=== PATIENT | female | born 2000 | race Two or more races ===

== ENCOUNTER 2020-07-12 10:24 | Inpatient (IN) | payer MEDICAID ==
[2020-07-12] MEDS ORDERED: Methylergonovine 0.2 MG/1 ML Amp IM PRN (11:43)
[2020-07-12] MEDS ORDERED: Ondansetron 4 MG/2 ML SDV IVPUSH PRN (11:43)
[2020-07-12] MEDS ORDERED: Butorphanol 1 MG/ML SDV IVPUSH PRN (11:43)
[2020-07-12] MEDS ORDERED: Nalbuphine 10 MG/1 ML Vial IVPUSH PRN (11:43)
[2020-07-12] MEDS ORDERED: Tranexamic Acid 1,000 MG in Sodium Chloride 0.9% 100 ML IV PRN (11:43)
[2020-07-12] MEDS ORDERED: Misoprostol 200 MCG Tab PO PRN (11:43)
[2020-07-12] MEDS ORDERED: Water For Irrigation,Sterile 1,000 ML Container IRR PRN (11:43)
[2020-07-12] MEDS ORDERED: Carboprost Tromethamine 250 MCG/1 ML Amp IM PRN (11:43)
[2020-07-12] MEDS ORDERED: Sodium Chloride 0.9% 2.5 ML Syringe FLUSH PRN (11:43)
[2020-07-12] MEDS ORDERED: Sodium Chloride 0.9% 10 ML Syringe FLUSH PRN (11:43)
[2020-07-12] MEDS ORDERED: Sodium Chloride 0.9% 10 ML SDV IV PRN (11:43)
[2020-07-12] MEDS ORDERED: Lidocaine 1% 50 ML MDV INJECT PRN (11:43)
[2020-07-12] MEDS ORDERED: Oxytocin/0.9 % Sodium Chloride 30 UNIT/500 ML BAG IV SCH (11:45)
[2020-07-12] MEDS ORDERED: Lactated Ringers 1,000 ML IV SCH (11:45)
[2020-07-13] MEDS ORDERED: Morphine 2 MG/ML SYRINGE IVPUSH ONE (01:12)
[2020-07-13] MEDS ORDERED: Lanolin 100% Cream 7 GM Tube TOP PRN (01:42)
[2020-07-13] MEDS ORDERED: Benzocaine/Menthol 20%-0.5% Spray 78 GM Cannister TOP PRN (01:42)
[2020-07-13] MEDS ORDERED: Ibuprofen 800 MG Tab PO PRN (01:42)
[2020-07-13] MEDS ORDERED: Docusate Sodium 100 MG Cap PO PRN (01:42)
[2020-07-13] MEDS ORDERED: Ibuprofen 400 MG Tab PO PRN (01:42)
[2020-07-13] MEDS ORDERED: Acetaminophen 500 MG Tab PO PRN ×2 (01:42)
[2020-07-13] MEDS ORDERED: Bisacodyl 10 MG Supp RECTAL PRN (01:42)
[2020-07-13] MEDS ORDERED: Witch Hazel Medicated Pads 40/Jar TOP PRN (01:42)
--- NOTE | 2020-07-13 01:48 | PCM.DEL ---
<Abrahan Hardwick - Last Filed: 07/13/20 01:36> L & D Note - General Info Date of Service: 07/13/20 Mother's Due Date: 07/18/20 - Delivery Note Labor: Spontaneous, Augmented by ARM Delivery Outcome: Livebirth Infant Delivery Method: Spontaneous Vaginal Delivery-Single Delivery Mode: Spontaneous Presentation: Right Occiput Anterior (DUSTIN) Nuchal Cord: Present Anesthesia Type: Pudendal Anesthetic: Lidocaine (Xylocaine) 1% Plain Local Anesthetic Volume: Other (20 mL during pudendal block, 10 mL for local anesthetic during labial laceration repair) Amniotic Fluid Description: Meconium Stained (Thin) Episiotomy Type: None Laceration: Labial (right and left) Suture type: Chromic Suture size: 3-0 Placenta: Intact, Spontaneous Cord: 3 Vessels Estimated Blood Loss: 200 Resuscitation Needed: No [place]: Bulb Syringe, Stimulated, Warmed Provider: Jenna Turcios Score 1 min: 8 Score 5 min: 9 Second Stage Interventions: Reports: Encouragement Given, Pushing, Feet in Foot Rests Delivery Comments (Free Text/Narrative):: Patient is a 19 year old with minimal care and a language barrier who presented to labor and delivery at 39w1d gestational age for contractions and spontaneous labor at 1015 on 07/12/20. The patient is A+ with a negative antibody screen. She is rubella immune, RPR negative, HIV and Hep B negative. Her GBS status is unknown. REUBEN is 07/18/20 based on US dating done at 34w5d. The patient continued to labor, and attempts to obtain a print color matcher for their primary language, pohnpeian, was unsuccessful. AROM occurred at 2035 with thin meconium stained fluid. Respiratory therapy was informed. The patient was found to be complete at 0007 on 07/13/20. The patient began pushing. A bilateral pudendal nerve block using 20 mL of 1% Lidocaine was performed for pain management at 0036. of a male infant occurred at 0101 in the DUSTIN position. A single nuchal cord was reduced following delivery. The was suctioned, cried spontaneously and the cord was clamped and cut. The infant was placed on the mother's abdomen, where it was stimulated and dried. The arterial and venous cord blood was then collected. The placenta was delivered spontaneously; the placenta was intact on inspection and a three vessel cord was observed. Inspection of the vaginal daniel was performed. A right labial tear was noted; this was repaired using 5 mL of 1% Lidocaine and 3-0 chromic. A second laceratio n on the left labia was noted and also repaired using 3-0 chromic and 5 mL of 1% Lidocaine. Further evaluation determined no other lacerations. Fundal massage was performed and the patient appeared to be hemodynamically stable. Cord blood was then obtained. - General Info Date of Service: 07/13/20 - Patient Data Weight - Most Recent: 175 lb Lab Results Last 24 Hours: Laboratory Results - last 24 hr 07/12/20 07/12/20 07/12/20 Range/Units 12:25 12:25 12:40 WBC 13.58 H (4.0-11.0) K/uL RBC 4.53 (4.30-5.90) M/uL Hgb 12.5 (12.0-16.0) g/dL Hct 38.0 (36.0-46.0) % MCV 83.9 (80.0-98.0) fL MCH 27.6 (27.0-32.0) pg MCHC 32.9 (31.0-37.0) g/dL RDW Std Deviation 40.6 (28.0-62.0) fl RDW Coeff of Elizabeth 14 (11.0-15.0) % Plt Count 237 (150-400) K/uL MPV 11.10 (7.40-12.00) fL Nucleated RBC % 0.0 /100WBC Nucleated RBCs # 0 K/uL COVID-19 (MEG) NEGATIVE (NEGATIVE) Blood Type A POSITIVE Antibody Screen NEGATIVE Med Orders - Current: Current Medications Butorphanol Tartrate (Stadol) 1 mg IVPUSH Q1H PRN PRN Reason: Pain Carboprost Tromethamine (Hemabate Ds) 250 mcg IM ASDIRECTED PRN PRN Reason: Post Hemorrhage Lactated Ringer's (Ringers, Lactated) 1,000 mls @ 150 mls/hr IV ASDIRECTED [facility] Last Infusion: 07/13/20 01:08 Dose: Infused Documented by: Oxytocin/Sodium Chloride (Oxytocin 30 Unit/500 Ml-Ns) 30 unit in 500 mls @ 500 mls/hr IV TITRATE [facility] Last Admin: 07/13/20 01:08 Dose: 500 mls/hr Documented by: Tranexamic Acid 1,000 mg/ (Sodium Chloride) 110 mls @ 660 mls/hr IV ONETIME PRN PRN Reason: Bleeding Lidocaine HCl (Xylocaine 1%) 50 ml INJECT ONETIME PRN PRN Reason: Laceration repair Methylergonovine Maleate (Methergine) 0.2 mg IM ASDIRECTED PRN PRN Reason: Post Hemorrhage Misoprostol (Cytotec) 200 mcg PO ONETIME PRN PRN Reason: Post Hemorrhage Nalbuphine HCl (Nubain) 10 mg IVPUSH Q1H PRN PRN Reason: Pain (severe 7-10) Ondansetron HCl (Zofran) 4 mg IVPUSH Q6H PRN PRN Reason: Nausea/Vomiting Sodium Chloride (Saline Flush) 10 ml FLUSH ASDIRECTED PRN PRN Reason: Keep Vein Open Sodium Chloride (Saline Flush) 2.5 ml FLUSH ASDIRECTED PRN PRN Reason: Keep Vein Open Sodium Chloride (Normal Saline) 10 ml IV ASDIRECTED PRN PRN Reason: IV Use Sterile Water (Sterile Water For Irrigation) 1,000 ml IRR ASDIRECTED PRN PRN Reason: delivery Last Admin: 07/13/20 01:22 Dose: 1,000 ml Documented by: Discontinued Medications Morphine Sulfate (Morphine) 2 mg IVPUSH ONETIME ONE Stop: 07/13/20 01:13 Last Admin: 07/13/20 01:17 Dose: 2 mg Documented by: - Problem List & Annotations (1) Vaginal delivery SNOMED Code(s): 650146146 Code(s): O80 - ENCOUNTER FOR FULL-TERM UNCOMPLICATED DELIVERY Status: Acute Current Visit: Yes (2) care insufficient SNOMED Code(s): 2561666640929 Code(s): O09.30 - SUPRVSN OF PREG W INSUFFICIENT ANTENAT CARE, UNSP TRIMESTER Status: Acute Current Visit: Yes (3) Language barrier SNOMED Code(s): 132328700, 251677146 Code(s): Z78.9 - OTHER SPECIFIED HEALTH STATUS Status: Acute Current Visit: Yes - Problem List Review Problem List Initiated/Reviewed/Updated: Yes - Assessment Assessment:: of a male infant at 39w2d gestational age to a 19 year old mother with limited care and a language barrier. Apgars 8/9 - Plan Plan:: 1. GBS unknown - per guidelines patient is term and does not require GBS prophylaxis 2. Rubella immune 3. A+ with negative antibody screen 4. Limited care 5. Language barrier - patient speaks Pohnpeian; all attempts were made to obtain an coal carrier and were unsuccessful, however patient was able to communicate sufficiently with nursing staff 6. as tolerated 7. Routine care per unit routine <Alba Mares - Last Filed: 07/13/20 02:46> - Patient Data Lab Results Last 24 Hours: Laboratory Results - last 24 hr 07/12/20 07/12/20 07/12/20 Range/Units 12:25 12:25 12:40 WBC 13.58 H (4.0-11.0) K/uL RBC 4.53 (4.30-5.90) M/uL Hgb 12.5 (12.0-16.0) g/dL Hct 38.0 (36.0-46.0) % MCV 83.9 (80.0-98.0) fL MCH 27.6 (27.0-32.0) pg MCHC 32.9 (31.0-37.0) g/dL RDW Std Deviation 40.6 (28.0-62.0) fl RDW Coeff of Elizabeth 14 (11.0-15.0) % Plt Count 237 (150-400) K/uL MPV 11.10 (7.40-12.00) fL Nucleated RBC % 0.0 /100WBC Nucleated RBCs # 0 K/uL COVID-19 (MEG) NEGATIVE (NEGATIVE) Blood Type A POSITIVE Antibody Screen NEGATIVE Med Orders - Current: Current Medications Acetaminophen (Tylenol Extra Strength) 500 mg PO Q4H PRN PRN Reason: Pain Acetaminophen (Tylenol Extra Strength) 1,000 mg PO Q4H PRN PRN Reason: Pain Benzocaine/Menthol (Dermoplast Pain Relief 20%-0.5% [place]) 78 gm TOP ASDIRECTED PRN PRN Reason: Perineal Comfort Measure Bisacodyl (Dulcolax) 10 mg RECTAL ONETIME PRN PRN Reason: Constipation Docusate Sodium (Colace) 100 mg PO BID PRN PRN Reason: Constipation Emollient Ointment (Lansinoh Hpa) 0 gm TOP ASDIRECTED PRN PRN Reason: Sore Nipples Ibuprofen (Motrin) 400 mg PO Q4H PRN PRN Reason: Pain Ibuprofen (Motrin) 800 mg PO Q6H PRN PRN Reason: Pain Oxycodone HCl (Oxycodone) 5 mg PO Q4H PRN PRN Reason: Pain (severe 7-10) Sodium Chloride (Saline Flush) 10 ml FLUSH ASDIRECTED PRN PRN Reason: Keep Vein Open Sodium Chloride (Saline Flush) 2.5 ml FLUSH ASDIRECTED PRN PRN Reason: Keep Vein Open Sodium Chloride (Normal Saline) 10 ml IV ASDIRECTED PRN PRN Reason: IV Use Witch Bindu (Tucks) 1 pad TOP ASDIRECTED PRN PRN Reason: comfort care Discontinued Medications Butorphanol Tartrate (Stadol) 1 mg IVPUSH Q1H PRN PRN Reason: Pain Carboprost Tromethamine (Hemabate Ds) 250 mcg IM ASDIRECTED PRN PRN Reason: Post Hemorrhage Lactated Ringer's (Ringers, Lactated) 1,000 mls @ 150 mls/hr IV ASDIRECTED [facility] Last Infusion: 07/13/20 01:08 Dose: Infused Documented by: Oxytocin/Sodium Chloride (Oxytocin 30 Unit/500 Ml-Ns) 30 unit in 500 mls @ 500 mls/hr IV TITRATE [facility] Last Admin: 07/13/20 01:08 Dose: 500 mls/hr Documented by: Tranexamic Acid 1,000 mg/ (Sodium Chloride) 110 mls @ 660 mls/hr IV ONETIME PRN PRN Reason: Bleeding Lidocaine HCl (Xylocaine 1%) 50 ml INJECT ONETIME PRN PRN Reason: Laceration repair Last Admin: 07/13/20 00:50 Dose: 50 ml Documented by: Measles/Mumps/Rubella Vaccine Live (M-M-R Ii Vaccine) 0.5 ml SUBCUT .ONCE ONE Stop: 07/13/20 02:39 Methylergonovine Maleate (Methergine) 0.2 mg IM ASDIRECTED PRN PRN Reason: Post Hemorrhage Misoprostol (Cytotec) 200 mcg PO ONETIME PRN PRN Reason: Post Hemorrhage Morphine Sulfate (Morphine) 2 mg IVPUSH ONETIME ONE Stop: 07/13/20 01:13 Last Admin: 07/13/20 01:17 Dose: 2 mg Documented by: Nalbuphine HCl (Nubain) 10 mg IVPUSH Q1H PRN PRN Reason: Pain (severe 7-10) Ondansetron HCl (Zofran) 4 mg IVPUSH Q6H PRN PRN Reason: Nausea/Vomiting Sterile Water (Sterile Water For Irrigation) 1,000 ml IRR ASDIRECTED PRN PRN Reason: delivery Last Admin: 07/13/20 01:22 Dose: 1,000 ml Documented by: - My Orders Last 24 Hours: My Active Orders 07/13/20 01:42 Patient Status [ADT] Routine May Shower [RC] ASDIRECTED Up ad Ellyn [RC] ASDIRECTED Vital Signs [RC] PER UNIT ROUTINE Acetaminophen [Tylenol Extra Strength] 1,000 mg PO Q4H PRN Acetaminophen [Tylenol Extra Strength] 500 mg PO Q4H PRN Benzocaine/Menthol [Dermoplast Pain Relief 20%-0.5% [place]] 78 gm TOP ASDIRECTED PRN Docusate Sodium [Colace] 100 mg PO BID PRN Ibuprofen [Motrin] 400 mg PO Q4H PRN Ibuprofen [Motrin] 800 mg PO Q6H PRN Lanolin [Lansinoh HPA] See Dose Instructions TOP ASDIRECTED PRN bisacodyL [Dulcolax] 10 mg RECTAL ONETIME PRN witch Bindu [Tucks] 1 pad TOP ASDIRECTED PRN Assess Lochia [WOMSER] Per Unit Routine Assess Uterine Involution [WOMSER] Per Unit Routine Peripheral IV Discontinue [OM.PC] Routine 07/13/20 02:38 Vaccines to be Administered [RC] PER UNIT ROUTINE 07/13/20 02:41 oxyCODONE 5 mg PO Q4H PRN 07/13/20 Breakfast Regular Diet [DIET] 07/14/20 05:11 HEMOGLOBIN/HEMATOCRIT,HH [HEME] Timed - Plan Plan:: Correction to above document: Patient is RUBELLA NON-IMMUNE. MMR vaccine ordered.
[2020-07-13] MEDS ORDERED: Measles, Mumps & Rubella Vaccine 0.5 ML SDV SUBCUT ONE (02:38)
[2020-07-13] MEDS ORDERED: oxyCODONE 5 MG Tab PO PRN (02:41)
--- NOTE | 2020-07-13 17:06 | OR ---
SURGEON: ALBA MARES MD DATE OF PROCEDURE: 07/13/2020 PREOPERATIVE DIAGNOSES: 1. A 39-2/7 weeks' intrauterine . 2. Labor. 3. Limited care. 4. Rubella nonimmune. POSTOPERATIVE DIAGNOSES: 1. A 39-2/7 weeks' intrauterine . 2. Labor. 3. Limited care. 4. Rubella nonimmune. 5. Bilateral labial lacerations, repaired PROCEDURE: Spontaneous vaginal delivery, pundendal block, bilateral labial lacerations. PRIMARY SURGEON: Alba Mares MD ASSISTANT CLINICAL DIRECTOR: LYUBOV Rodriguez ANESTHESIA: Local anesthetic and pudendal block. ESTIMATED BLOOD LOSS: 200 mL. COMPLICATIONS: None known. FINDINGS: Viable male . score of 8 at one minute and 9 at five minutes. Weight of 3030 g. Spontaneous delivery with intact placenta and 3-vessel cord. Right and left labial lacerations. DISPOSITION: to nursery, mom to LDRP. PROCEDURE DETAILS: Liliya is a 19-year-old, 1, at 39 weeks and 2 days' gestation, who presented to Labor and Delivery during the afternoon of 07/12/2020. Labor progressed spontaneously to 5 cm and artificial rupture of membranes was performed at 2035 with thin meconium-stained fluid noted. Respiratory Therapy was informed and requested to attend the delivery. Labor progressed without complications and without augmentation. The patient was found to be completely dilated at 0007 on 07/13/2020. Shortly thereafter, the patient began pushing efforts after my arrival to the room. As pushing continued, the patient requested medication for pain. Reviewed risks/benefits of pudendal block and patient desired. The right ischial spine was identified and a needle guide was used to place the needle immediately inferior to ischial spine. Upon negative aspiration, 10cc of 1% lidocaine was injected. The procedure was then performed on the contralateral side. Patient tolerated procedure well. The patient pushed adequately and was able to deliver the infant's head atraumatically. Loose nuchal cord x1 was reduced after delivery of the infant's head. The anterior shoulder and posterior shoulder and the remainder of the body delivered spontaneously without difficulty. 's oropharynx and nares were bulb suctioned. After a 30- second delay, the cord was clamped and cut. Infant was handed off to his mother while attending nursing staff at side. Cord arterial, cord venous, and cord blood sampling was obtained. Light pressure was then applied while the placenta was delivered spontaneously intact and 30 units of Pitocin was delivered in 500 mL of IV fluid. Upon inspection of the perineum, a small right labial laceration and a small left labial laceration were noted. The lacerations were injected with 1% lidocaine for local anesthetic. The lacerations were then repaired in a running fashion with 3-0 chromic. Further evaluations determined no additional lacerations. Uterus remained firm, hemostasis evident. Sponge, lap, and needle counts were correct. The patient remained in LDRP, and to nursery. CHELE / JYOTHI /[id number] ANNY
--- NOTE | 2020-07-14 08:34 | PCM.PNPP ---
<Abrahan Hardwick - Last Filed: 07/14/20 08:49> - General Info Date of Service: 07/14/20 Admission Dx/Problem (Free Text): of a male at 39w2d gestational age to a 19 year old mother with limited care and a language barrier who was admitted for spontaneous labor. Apgars 8/9 Subjective Update: Patient is doing well. She reports that breast feeding has gone well, her bleeding is improved and her pain is manageable. Functional Status: Reports: Pain Controlled, Tolerating Diet, Ambulating, Urinating - Review of Systems General: Reports: No Symptoms HEENT: Reports: No Symptoms Pulmonary: Reports: No Symptoms Cardiovascular: Reports: No Symptoms Gastrointestinal: Reports: No Symptoms Genitourinary: Reports: No Symptoms Musculoskeletal: Reports: No Symptoms Skin: Reports: No Symptoms Neurological: Reports: No Symptoms Psychiatric: Reports: No Symptoms - General Info Date of Service: 07/14/20 - Patient Data Vital Signs - Most Recent: Last Vital Signs Temp 96.4 F L 07/14/20 04:00 Pulse 92 07/14/20 04:00 Resp 14 07/14/20 04:00 BP 113/73 07/14/20 04:00 Pulse Ox 98 07/14/20 04:00 Weight - Most Recent: 79.379 kg Lab Results - Last 24 Hours: Laboratory Results - last 24 hr 07/14/20 Range/Units 05:40 Hgb 10.8 L (12.0-16.0) g/dL Hct 33.9 L (36.0-46.0) % Med Orders - Current: Current Medications Acetaminophen (Tylenol Extra Strength) 500 mg PO Q4H PRN PRN Reason: Pain Acetaminophen (Tylenol Extra Strength) 1,000 mg PO Q4H PRN PRN Reason: Pain Benzocaine/Menthol (Dermoplast Pain Relief 20%-0.5% [place]) 78 gm TOP ASDIRECTED PRN PRN Reason: Perineal Comfort Measure Bisacodyl (Dulcolax) 10 mg RECTAL ONETIME PRN PRN Reason: Constipation Docusate Sodium (Colace) 100 mg PO BID PRN PRN Reason: Constipation Emollient Ointment (Lansinoh Hpa) 0 gm TOP ASDIRECTED PRN PRN Reason: Sore Nipples Ibuprofen (Motrin) 400 mg PO Q4H PRN PRN Reason: Pain Ibuprofen (Motrin) 800 mg PO Q6H PRN PRN Reason: Pain Oxycodone HCl (Oxycodone) 5 mg PO Q4H PRN PRN Reason: Pain (severe 7-10) Sodium Chloride (Saline Flush) 10 ml FLUSH ASDIRECTED PRN PRN Reason: Keep Vein Open Sodium Chloride (Saline Flush) 2.5 ml FLUSH ASDIRECTED PRN PRN Reason: Keep Vein Open Sodium Chloride (Normal Saline) 10 ml IV ASDIRECTED PRN PRN Reason: IV Use Witch Bindu (Tucks) 1 pad TOP ASDIRECTED PRN PRN Reason: comfort care Discontinued Medications Butorphanol Tartrate (Stadol) 1 mg IVPUSH Q1H PRN PRN Reason: Pain Carboprost Tromethamine (Hemabate Ds) 250 mcg IM ASDIRECTED PRN PRN Reason: Post Hemorrhage Lactated Ringer's (Ringers, Lactated) 1,000 mls @ 150 mls/hr IV ASDIRECTED [facility] Last Infusion: 07/13/20 01:08 Dose: Infused Documented by: Oxytocin/Sodium Chloride (Oxytocin 30 Unit/500 Ml-Ns) 30 unit in 500 mls @ 500 mls/hr IV TITRATE [facility] Last Admin: 07/13/20 01:08 Dose: 500 mls/hr Documented by: Tranexamic Acid 1,000 mg/ (Sodium Chloride) 110 mls @ 660 mls/hr IV ONETIME PRN PRN Reason: Bleeding Lidocaine HCl (Xylocaine 1%) 50 ml INJECT ONETIME PRN PRN Reason: Laceration repair Last Admin: 07/13/20 00:50 Dose: 50 ml Documented by: Measles/Mumps/Rubella Vaccine Live (M-M-R Ii Vaccine) 0.5 ml SUBCUT .ONCE ONE Stop: 07/13/20 02:39 Methylergonovine Maleate (Methergine) 0.2 mg IM ASDIRECTED PRN PRN Reason: Post Hemorrhage Misoprostol (Cytotec) 200 mcg PO ONETIME PRN PRN Reason: Post Hemorrhage Morphine Sulfate (Morphine) 2 mg IVPUSH ONETIME ONE Stop: 07/13/20 01:13 Last Admin: 07/13/20 01:17 Dose: 2 mg Documented by: Nalbuphine HCl (Nubain) 10 mg IVPUSH Q1H PRN PRN Reason: Pain (severe 7-10) Ondansetron HCl (Zofran) 4 mg IVPUSH Q6H PRN PRN Reason: Nausea/Vomiting Sterile Water (Sterile Water For Irrigation) 1,000 ml IRR ASDIRECTED PRN PRN Reason: delivery Last Admin: 07/13/20 01:22 Dose: 1,000 ml Documented by: - Infant Interaction Infant Disposition, : [place] in Room with Family Interaction: Holding Infant Feeding: Attempted ; Nursed Fair/Poor Support Person: - Recovery Exam Fundal Tone: Firm Fundal Level: 1 Fingerbreadths Below Umbilicus Fundal Placement: Midline Lochia Amount: Scant Lochia Color: Rubra/Red Perineum Description: Edematous Episiotomy/Laceration: Approximated Bladder Status: Nonpalpable, Voiding Urinary Elimination: Voided - Exam General: Alert, Oriented HEENT: Pupils Equal, Pupils Reactive Lungs: Clear to Auscultation, Normal Respiratory Effort Cardiovascular: Regular Rate, Regular Rhythm Extremities: Normal Inspection, Non-Tender, No Pedal Edema, Normal Capillary Refill Skin: Warm, Dry, Intact Neurological: No New Focal Deficit Psy/Mental Status: Alert, Normal Affect, Normal Mood - Problem List & Annotations (1) Vaginal delivery SNOMED Code(s): 056238724 Code(s): O80 - ENCOUNTER FOR FULL-TERM UNCOMPLICATED DELIVERY Status: Acute Current Visit: Yes (2) care insufficient SNOMED Code(s): 5834348996581 Code(s): O09.30 - SUPRVSN OF PREG W INSUFFICIENT ANTENAT CARE, UNSP TRIMESTER Status: Acute Current Visit: Yes (3) Language barrier SNOMED Code(s): 080701617, 416136497 Code(s): Z78.9 - OTHER SPECIFIED HEALTH STATUS Status: Acute Current Visit: Yes (4) Rubella nonimmune status, delivered, current hospitalization SNOMED Code(s): 164469668 Code(s): O99.89 - OTH DISEASES AND CONDITIONS COMPL PREG/CHLDBRTH; Z28.3 - UNDERIMMUNIZATION STATUS Status: Acute Current Visit: Yes - Problem List Review Problem List Initiated/Reviewed/Updated: Yes - Assessment Assessment:: day 1 of a male infant at 39w2d gestational age to a 19 year old mother with limited care and a language barrier with GBS status unknown. Apgars 8/9 - Plan Plan:: 1. GBS unknown - per guidelines patient is term and does not require GBS prophylaxis 2. Rubella non-immune - needs MMR prior to discharge 3. A+ with negative antibody screen 4. Limited care 5. Language barrier - patient speaks Pohnpeian; all attempts were made to obtain an product tester fiberglass and were unsuccessful, however patient was able to communicate sufficiently with nursing staff 6. as tolerated 7. Routine care per unit routine 8. Discharge home at 48 hours per furnace utility operator recommendation due to GBS status <Melia Villafuerte - Last Filed: 07/14/20 12:06> - Patient Data Vital Signs - Most Recent: Last Vital Signs Temp 36.3 C 07/14/20 08:30 Pulse 92 07/14/20 04:00 Resp 18 07/14/20 08:30 BP 118/60 07/14/20 08:30 Pulse Ox 97 07/14/20 08:30 Lab Results - Last 24 Hours: Laboratory Results - last 24 hr 07/14/20 Range/Units 05:40 Hgb 10.8 L (12.0-16.0) g/dL Hct 33.9 L (36.0-46.0) % Med Orders - Current: Current Medications Acetaminophen (Tylenol Extra Strength) 500 mg PO Q4H PRN PRN Reason: Pain Acetaminophen (Tylenol Extra Strength) 1,000 mg PO Q4H PRN PRN Reason: Pain Benzocaine/Menthol (Dermoplast Pain Relief 20%-0.5% [place]) 78 gm TOP ASDIRECTED PRN PRN Reason: Perineal Comfort Measure Bisacodyl (Dulcolax) 10 mg RECTAL ONETIME PRN PRN Reason: Constipation Docusate Sodium (Colace) 100 mg PO BID PRN PRN Reason: Constipation Emollient Ointment (Lansinoh Hpa) 0 gm TOP ASDIRECTED PRN PRN Reason: Sore Nipples Ibuprofen (Motrin) 400 mg PO Q4H PRN PRN Reason: Pain Ibuprofen (Motrin) 800 mg PO Q6H PRN PRN Reason: Pain Oxycodone HCl (Oxycodone) 5 mg PO Q4H PRN PRN Reason: Pain (severe 7-10) Sodium Chloride (Saline Flush) 10 ml FLUSH ASDIRECTED PRN PRN Reason: Keep Vein Open Sodium Chloride (Saline Flush) 2.5 ml FLUSH ASDIRECTED PRN PRN Reason: Keep Vein Open Sodium Chloride (Normal Saline) 10 ml IV ASDIRECTED PRN PRN Reason: IV Use Witch Bindu (Tucks) 1 pad TOP ASDIRECTED PRN PRN Reason: comfort care Discontinued Medications Butorphanol Tartrate (Stadol) 1 mg IVPUSH Q1H PRN PRN Reason: Pain Carboprost Tromethamine (Hemabate Ds) 250 mcg IM ASDIRECTED PRN PRN Reason: Post Hemorrhage Lactated Ringer's (Ringers, Lactated) 1,000 mls @ 150 mls/hr IV ASDIRECTED [facility] Last Infusion: 07/13/20 01:08 Dose: Infused Documented by: Oxytocin/Sodium Chloride (Oxytocin 30 Unit/500 Ml-Ns) 30 unit in 500 mls @ 500 mls/hr IV TITRATE [facility] Last Admin: 07/13/20 01:08 Dose: 500 mls/hr Documented by: Tranexamic Acid 1,000 mg/ (Sodium Chloride) 110 mls @ 660 mls/hr IV ONETIME PRN PRN Reason: Bleeding Lidocaine HCl (Xylocaine 1%) 50 ml INJECT ONETIME PRN PRN Reason: Laceration repair Last Admin: 07/13/20 00:50 Dose: 50 ml Documented by: Measles/Mumps/Rubella Vaccine Live (M-M-R Ii Vaccine) 0.5 ml SUBCUT .ONCE ONE Stop: 07/13/20 02:39 Methylergonovine Maleate (Methergine) 0.2 mg IM ASDIRECTED PRN PRN Reason: Post Hemorrhage Misoprostol (Cytotec) 200 mcg PO ONETIME PRN PRN Reason: Post Hemorrhage Morphine Sulfate (Morphine) 2 mg IVPUSH ONETIME ONE Stop: 07/13/20 01:13 Last Admin: 07/13/20 01:17 Dose: 2 mg Documented by: Nalbuphine HCl (Nubain) 10 mg IVPUSH Q1H PRN PRN Reason: Pain (severe 7-10) Ondansetron HCl (Zofran) 4 mg IVPUSH Q6H PRN PRN Reason: Nausea/Vomiting Sterile Water (Sterile Water For Irrigation) 1,000 ml IRR ASDIRECTED PRN PRN Reason: delivery Last Admin: 07/13/20 01:22 Dose: 1,000 ml Documented by: - Problem List & Annotations (1) Vaginal delivery SNOMED Code(s): 512064687 Code(s): O80 - ENCOUNTER FOR FULL-TERM UNCOMPLICATED DELIVERY Status: Acute Current Visit: Yes - Plan Plan:: I have reviewed and agree with the above. Baby will stay for 48 hours due to unknown GBS status. Will order MMR vaccination. Continue routine PP care.
--- NOTE | 2020-07-15 09:20 | PCM.PNPP ---
<Abrahan Hardwick - Last Filed: 07/15/20 09:20> - General Info Date of Service: 07/15/20 Admission Dx/Problem (Free Text): of a male at 39w2d gestational age to a 19 year old mother with limited care and a language barrier who was admitted for spontaneous labor. Apgars 8/9 Subjective Update: Patient is doing well today. She reports that she has been up to use the bathroom and has not had any pain. She has not yet had a bowel movement but has been passing gas. She has been able to breastfeed without issue. Functional Status: Reports: Pain Controlled, Tolerating Diet, Ambulating, Urinating - Review of Systems General: Reports: No Symptoms HEENT: Reports: No Symptoms Pulmonary: Reports: No Symptoms Cardiovascular: Reports: No Symptoms Gastrointestinal: Reports: No Symptoms Genitourinary: Reports: No Symptoms Musculoskeletal: Reports: No Symptoms Skin: Reports: No Symptoms Neurological: Reports: No Symptoms Psychiatric: Reports: No Symptoms - General Info Date of Service: 07/15/20 - Patient Data Vital Signs - Most Recent: Last Vital Signs Temp 97.3 F 07/15/20 08:00 Pulse 85 07/15/20 08:00 Resp 16 07/15/20 08:00 BP 109/59 L 07/15/20 04:43 Pulse Ox 99 07/15/20 08:00 Weight - Most Recent: 79.379 kg Lab Results - Last 24 Hours: Laboratory Results - last 24 hr 07/13/20 Range/Units 10:24 RPR Non-Reac (Non-Reac) Med Orders - Current: Current Medications Acetaminophen (Tylenol Extra Strength) 500 mg PO Q4H PRN PRN Reason: Pain Acetaminophen (Tylenol Extra Strength) 1,000 mg PO Q4H PRN PRN Reason: Pain Benzocaine/Menthol (Dermoplast Pain Relief 20%-0.5% Dennis) 78 gm TOP ASDIRECTED PRN PRN Reason: Perineal Comfort Measure Bisacodyl (Dulcolax) 10 mg RECTAL ONETIME PRN PRN Reason: Constipation Docusate Sodium (Colace) 100 mg PO BID PRN PRN Reason: Constipation Emollient Ointment (Lansinoh Hpa) 0 gm TOP ASDIRECTED PRN PRN Reason: Sore Nipples Ibuprofen (Motrin) 400 mg PO Q4H PRN PRN Reason: Pain Ibuprofen (Motrin) 800 mg PO Q6H PRN PRN Reason: Pain Oxycodone HCl (Oxycodone) 5 mg PO Q4H PRN PRN Reason: Pain (severe 7-10) Sodium Chloride (Saline Flush) 10 ml FLUSH ASDIRECTED PRN PRN Reason: Keep Vein Open Sodium Chloride (Saline Flush) 2.5 ml FLUSH ASDIRECTED PRN PRN Reason: Keep Vein Open Sodium Chloride (Normal Saline) 10 ml IV ASDIRECTED PRN PRN Reason: IV Use Witch Bindu (Tucks) 1 pad TOP ASDIRECTED PRN PRN Reason: comfort care Discontinued Medications Butorphanol Tartrate (Stadol) 1 mg IVPUSH Q1H PRN PRN Reason: Pain Carboprost Tromethamine (Hemabate Ds) 250 mcg IM ASDIRECTED PRN PRN Reason: Post Hemorrhage Lactated Ringer's (Ringers, Lactated) 1,000 mls @ 150 mls/hr IV ASDIRECTED [facility] Last Infusion: 07/13/20 01:08 Dose: Infused Documented by: Oxytocin/Sodium Chloride (Oxytocin 30 Unit/500 Ml-Ns) 30 unit in 500 mls @ 500 mls/hr IV TITRATE [facility] Last Admin: 07/13/20 01:08 Dose: 500 mls/hr Documented by: Tranexamic Acid 1,000 mg/ (Sodium Chloride) 110 mls @ 660 mls/hr IV ONETIME PRN PRN Reason: Bleeding Lidocaine HCl (Xylocaine 1%) 50 ml INJECT ONETIME PRN PRN Reason: Laceration repair Last Admin: 07/13/20 00:50 Dose: 50 ml Documented by: Measles/Mumps/Rubella Vaccine Live (M-M-R Ii Vaccine) 0.5 ml SUBCUT .ONCE ONE Stop: 07/13/20 02:39 Methylergonovine Maleate (Methergine) 0.2 mg IM ASDIRECTED PRN PRN Reason: Post Hemorrhage Misoprostol (Cytotec) 200 mcg PO ONETIME PRN PRN Reason: Post Hemorrhage Morphine Sulfate (Morphine) 2 mg IVPUSH ONETIME ONE Stop: 07/13/20 01:13 Last Admin: 07/13/20 01:17 Dose: 2 mg Documented by: Nalbuphine HCl (Nubain) 10 mg IVPUSH Q1H PRN PRN Reason: Pain (severe 7-10) Ondansetron HCl (Zofran) 4 mg IVPUSH Q6H PRN PRN Reason: Nausea/Vomiting Sterile Water (Sterile Water For Irrigation) 1,000 ml IRR ASDIRECTED PRN PRN Reason: delivery Last Admin: 07/13/20 01:22 Dose: 1,000 ml Documented by: - Infant Interaction Infant Disposition, : Berger in Room with Family Infant Interaction: Holding Feeding: Attempted ; Nursed Fair/Poor Support Person: - Recovery Exam Fundal Tone: Firm Fundal Level: 1 Fingerbreadths Below Umbilicus Fundal Placement: Midline Lochia Amount: Small Lochia Color: Rubra/Red Perineum Description: Edematous Episiotomy/Laceration: Approximated Bladder Status: Nonpalpable, Voiding Urinary Elimination: Voided - Exam General: Alert, Oriented HEENT: Pupils Equal, Pupils Reactive Lungs: Clear to Auscultation, Normal Respiratory Effort Cardiovascular: Regular Rate, Regular Rhythm GI/Abdominal Exam: Normal Bowel Sounds, Non-Tender, No Organomegaly, No Distention, No Mass Extremities: Normal Inspection, Non-Tender, No Pedal Edema, Normal Capillary Refill Skin: Warm, Dry, Intact Neurological: No New Focal Deficit Psy/Mental Status: Alert, Normal Affect, Normal Mood - Problem List & Annotations (1) Vaginal delivery SNOMED Code(s): 275763374 Code(s): O80 - ENCOUNTER FOR FULL-TERM UNCOMPLICATED DELIVERY Status: Acute Current Visit: Yes (2) care insufficient SNOMED Code(s): 5656511927991 Code(s): O09.30 - SUPRVSN OF PREG W INSUFFICIENT ANTENAT CARE, UNSP TRIMESTER Status: Acute Current Visit: Yes (3) Language barrier SNOMED Code(s): 885497949, 669334542 Code(s): Z78.9 - OTHER SPECIFIED HEALTH STATUS Status: Acute Current Visit: Yes (4) Rubella nonimmune status, delivered, current hospitalization SNOMED Code(s): 818496817 Code(s): O99.89 - OTH DISEASES AND CONDITIONS COMPL PREG/CHLDBRTH; Z28.3 - UNDERIMMUNIZATION STATUS Status: Acute Current Visit: Yes - Problem List Review Problem List Initiated/Reviewed/Updated: Yes - Assessment Assessment:: day 2 of a male infant at 39w2d gestational age to a 19 year old mother with limited care and a language barrier with GBS status unknown. Apgars 8/9 - Plan Plan:: 1. GBS unknown - per guidelines patient is term and does not require GBS prophylaxis 2. Rubella non-immune - MMR ordered, to be given prior to discharge 3. A+ with negative antibody screen 4. Limited care 5. Language barrier - patient speaks Pohnpe[place]; all attempts were made to obtain an recoverer and were unsuccessful, however patient was able to communicate sufficiently with nursing staff 6. as tolerated 7. Routine care per unit routine 8. Discharge home at 48 hours per information management specialist recommendation due to GBS status <Melia Villafuerte - Last Filed: 07/15/20 09:32> - Patient Data Vital Signs - Most Recent: Last Vital Signs Temp 36.3 C 07/15/20 08:00 Pulse 85 07/15/20 08:00 Resp 16 07/15/20 08:00 BP 109/59 L 07/15/20 04:43 Pulse Ox 99 07/15/20 08:00 Lab Results - Last 24 Hours: Laboratory Results - last 24 hr 07/13/20 Range/Units 10:24 RPR Non-Reac (Non-Reac) Med Orders - Current: Current Medications Acetaminophen (Tylenol Extra Strength) 500 mg PO Q4H PRN PRN Reason: Pain Acetaminophen (Tylenol Extra Strength) 1,000 mg PO Q4H PRN PRN Reason: Pain Benzocaine/Menthol (Dermoplast Pain Relief 20%-0.5% Dennis) 78 gm TOP ASDIRECTED PRN PRN Reason: Perineal Comfort Measure Bisacodyl (Dulcolax) 10 mg RECTAL ONETIME PRN PRN Reason: Constipation Docusate Sodium (Colace) 100 mg PO BID PRN PRN Reason: Constipation Emollient Ointment (Lansinoh Hpa) 0 gm TOP ASDIRECTED PRN PRN Reason: Sore Nipples Ibuprofen (Motrin) 400 mg PO Q4H PRN PRN Reason: Pain Ibuprofen (Motrin) 800 mg PO Q6H PRN PRN Reason: Pain Oxycodone HCl (Oxycodone) 5 mg PO Q4H PRN PRN Reason: Pain (severe 7-10) Sodium Chloride (Saline Flush) 10 ml FLUSH ASDIRECTED PRN PRN Reason: Keep Vein Open Sodium Chloride (Saline Flush) 2.5 ml FLUSH ASDIRECTED PRN PRN Reason: Keep Vein Open Sodium Chloride (Normal Saline) 10 ml IV ASDIRECTED PRN PRN Reason: IV Use Witch Bindu (Tucks) 1 pad TOP ASDIRECTED PRN PRN Reason: comfort care Discontinued Medications Butorphanol Tartrate (Stadol) 1 mg IVPUSH Q1H PRN PRN Reason: Pain Carboprost Tromethamine (Hemabate Ds) 250 mcg IM ASDIRECTED PRN PRN Reason: Post Hemorrhage Lactated Ringer's (Ringers, Lactated) 1,000 mls @ 150 mls/hr IV ASDIRECTED [facility] Last Infusion: 07/13/20 01:08 Dose: Infused Documented by: Oxytocin/Sodium Chloride (Oxytocin 30 Unit/500 Ml-Ns) 30 unit in 500 mls @ 500 mls/hr IV TITRATE [facility] Last Admin: 07/13/20 01:08 Dose: 500 mls/hr Documented by: Tranexamic Acid 1,000 mg/ (Sodium Chloride) 110 mls @ 660 mls/hr IV ONETIME PRN PRN Reason: Bleeding Lidocaine HCl (Xylocaine 1%) 50 ml INJECT ONETIME PRN PRN Reason: Laceration repair Last Admin: 07/13/20 00:50 Dose: 50 ml Documented by: Measles/Mumps/Rubella Vaccine Live (M-M-R Ii Vaccine) 0.5 ml SUBCUT .ONCE ONE Stop: 07/13/20 02:39 Methylergonovine Maleate (Methergine) 0.2 mg IM ASDIRECTED PRN PRN Reason: Post Hemorrhage Misoprostol (Cytotec) 200 mcg PO ONETIME PRN PRN Reason: Post Hemorrhage Morphine Sulfate (Morphine) 2 mg IVPUSH ONETIME ONE Stop: 07/13/20 01:13 Last Admin: 07/13/20 01:17 Dose: 2 mg Documented by: Nalbuphine HCl (Nubain) 10 mg IVPUSH Q1H PRN PRN Reason: Pain (severe 7-10) Ondansetron HCl (Zofran) 4 mg IVPUSH Q6H PRN PRN Reason: Nausea/Vomiting Sterile Water (Sterile Water For Irrigation) 1,000 ml IRR ASDIRECTED PRN PRN Reason: delivery Last Admin: 07/13/20 01:22 Dose: 1,000 ml Documented by: - Problem List & Annotations (1) Vaginal delivery SNOMED Code(s): 671665275 Code(s): O80 - ENCOUNTER FOR FULL-TERM UNCOMPLICATED DELIVERY Status: Acute Current Visit: Yes - Plan Plan:: I reviewed and agree with the above. going well. Reviewed discharge instructions.
[2020-07-15] MEDS ORDERED: Measles, Mumps & Rubella Vaccine 0.5 ML SDV SUBCUT ONE (10:19)
== END 2020-07-15 10:55 | disposition home or self-care (01) | DRG 807 ==
LOC: MW.OBCHECK 10:24 → MW.OB 10:33 → MW.OBCHECK 11:43 → MW.OB 11:44 → OBSVTOIN 07-13 01:01 → MW.OB 07-13 03:30
PROVIDERS: ADMIT Obstetrics & Gynecology; ATTEND Obstetrics & Gynecology
PROC: 10E0XZZ Delivery of Products of Conception, External Approach (ICD-10-PCS; principal; 2020-07-13)
PROC: 10907ZC Drainage of Amniotic Fluid, Therapeutic from Products of Conception, Via Natural or Artificial Opening (ICD-10-PCS; 2020-07-13)
PROC: 0UQMXZZ Repair Vulva, External Approach (ICD-10-PCS; 2020-07-13)
PROC: 3E0R3BZ Introduction of Anesthetic Agent into Spinal Canal, Percutaneous Approach (ICD-10-PCS; 2020-07-13)
DX: O69.81X0 Labor and delivery complicated by cord around neck, without compression, not applicable or unspecified (principal); Z37.0 Single live birth; Z3A.39 39 weeks gestation of pregnancy; O70.0 First degree perineal laceration during delivery; O77.0 Labor and delivery complicated by meconium in amniotic fluid; O76 Abnormality in fetal heart rate and rhythm complicating labor and delivery; Z11.59 Encounter for screening for other viral diseases
CPT/HCPCS: 36415; 59025; 59409; 82803; 85014; 85018; 85027; 86592; 86850; 86900; 86901; J2001; J2270; J2590; J7120; U0002

== ENCOUNTER 2021-09-15 15:33 | Inpatient (IN) | payer MEDICAID, OTHER ==
[2021-09-15] MEDS ORDERED: Sodium Chloride 0.9% 2.5 ML Syringe FLUSH PRN (15:59)
[2021-09-15] MEDS ORDERED: Ampicillin 2 GM in Sodium Chloride 0.9% 100 ML IV ONE (15:59)
[2021-09-15] MEDS ORDERED: Carboprost Tromethamine 250 MCG/1 ML Amp IM PRN (15:59)
[2021-09-15] MEDS ORDERED: Butorphanol 1 MG/ML SDV IVPUSH PRN (15:59)
[2021-09-15] MEDS ORDERED: Tranexamic Acid 1,000 MG in Sodium Chloride 0.9% 100 ML IV PRN (15:59)
[2021-09-15] MEDS ORDERED: Water For Irrigation,Sterile 1,000 ML Container IRR PRN (15:59)
[2021-09-15] MEDS ORDERED: Methylergonovine 0.2 MG/1 ML Amp IM PRN (15:59)
[2021-09-15] MEDS ORDERED: Misoprostol 200 MCG Tab PO PRN (15:59)
[2021-09-15] MEDS ORDERED: Sodium Chloride 0.9% 10 ML SDV IV PRN (15:59)
[2021-09-15] MEDS ORDERED: Nalbuphine 10 MG/1 ML Vial IVPUSH PRN (15:59)
[2021-09-15] MEDS ORDERED: Lidocaine 1% 50 ML MDV INJECT PRN (15:59)
[2021-09-15] MEDS ORDERED: Sodium Chloride 0.9% 10 ML Syringe FLUSH PRN (15:59)
[2021-09-15] MEDS ORDERED: Lactated Ringers 1,000 ML IV SCH (16:00)
[2021-09-15] MEDS ORDERED: Oxytocin/0.9 % Sodium Chloride 30 UNIT/500 ML BAG IV SCH (16:00)
--- NOTE | 2021-09-15 17:05 | PCM.LDHP ---
L&D History of Present Illness - General Date of Service: 09/15/21 Admit Problem/Dx: Patient Status Order with Admit Dx/Problem 09/15/21 15:59 Patient Status [ADT] Routine Admission Diagnosis/Problem Admission Diagnosis/Problem Source of Information: Patient History Limitations: Reports: No Limitations - History of Present Illness Introduction:: 20yo at 39w6d presenting with contractions for the past few hours. care is complicated by late entry to care: patient reports she had no insurance. She was also found to be GBS positive. A+, abs screen neg, RI, RPR NR, HBsAg neg, HIV neg. - Related Data Allergies/Adverse Reactions: Allergies Allergy/AdvReac Type Severity Reaction Status Date / Time No Known Allergies Allergy Verified 09/15/21 16:03 Home Medications: Home Meds Pnv No.95/Ferrous Fum/Folic AC [ Vitamins Tablet] 1 tab PO DAILY 09/15/21 [History] Past Medical History - Past Health History Medical/Surgical History: Denies Medical/Surgical History [employer] History: Reports: Social & Family History - Family History Family Medical History: No Pertinent Family History - Tobacco Use Tobacco Use Status *Q: Never Tobacco User Second Hand Smoke Exposure: No H&P Review of Systems - Review of Systems: Review Of Systems: See Below General: Reports: No Symptoms HEENT: Reports: No Symptoms Pulmonary: Reports: No Symptoms Cardiovascular: Reports: No Symptoms Gastrointestinal: Reports: No Symptoms Genitourinary: Reports: No Symptoms Musculoskeletal: Reports: No Symptoms Skin: Reports: No Symptoms Psychiatric: Reports: No Symptoms Neurological: Reports: No Symptoms Hematologic/Lymphatic: Reports: No Symptoms Immunologic: Reports: No Symptoms L&D Exam - Exam Exam: See Below - Vital Signs Weight: 81.647 kg - OB Specific Contraction Intensity: Moderate to Strong Movement: Active Heart Rate (FHR) Variability: Moderate (6-25 bpm) Estimated Weight: 7.5lbs - Boyce Score Boyce Score Cervix Position: Midposition Boyce Score Consistency: Medium Boyce Score Effacement: 51-70% Boyce Score Dilation: > 5 cm Boyce Score 's Station: -2 Boyce Score Total: 8 - Exam General: Alert, Oriented Cardiovascular: Regular Rate GI/Abdominal Exam: Soft, Non-Tender Extremities: Normal Inspection Psychiatric: Alert, Normal Affect, Normal Mood - Patient Data Lab Results Last 24 hrs: Laboratory Results - last 24 hr 09/15/21 Range/Units 16:22 WBC 10.53 (4.0-11.0) K/uL RBC 4.38 (4.30-5.90) M/uL Hgb 11.5 L (12.0-16.0) g/dL Hct 34.8 L (36.0-46.0) % MCV 79.5 L (80.0-98.0) fL MCH 26.3 L (27.0-32.0) pg MCHC 33.0 (31.0-37.0) g/dL RDW Std Deviation 39.4 (28.0-62.0) fl RDW Coeff of Elizabeth 14 (11.0-15.0) % Plt Count 255 (150-400) K/uL MPV 10.70 (7.40-12.00) fL Nucleated RBC % 0.0 /100WBC Nucleated RBCs # 0 K/uL Result Diagrams: 09/15/21 16:22 - Problem List (1) Active labor at term SNOMED Code(s): 51467045 ICD Code: OQB2799 - Status: Acute Priority: High Current Visit: Yes (2) GBS carrier SNOMED Code(s): 9009592877356 ICD Code: Z22.330 - CARRIER OF GROUP B STREPTOCOCCUS Status: Acute Priority: High Current Visit: Yes Problem List Initiated/Reviewed/Updated: Yes Orders Last 24hrs: Active Orders 24 hr Category Date Time Status Patient Status [ADT] Routine ADT 09/15/21 15:59 Active Heart Tones [RC] CONTINUOUS Care 09/15/21 15:59 Active May Shower [RC] ASDIRECTED Care 09/15/21 15:59 Active Notify Provider [RC] PRN Care 09/15/21 15:59 Active Up ad Ellyn [RC] ASDIRECTED Care 09/15/21 15:59 Active Vital Signs [RC] PER UNIT ROUTINE Care 09/15/21 15:59 Active Regular Diet [DIET] Diet 09/15/21 Dinner Active CORONAVIRUS COVID-19 MEG [MOLEC] Urgent Lab 09/15/21 15:59 Ordered RPR (SYPHILIS SERO) W/ RFLX [REF] Routine Lab 09/15/21 16:22 Received TYPE AND SCREEN [BBK] Routine Lab 09/15/21 16:14 Received Ampicillin 1 gm Med 09/15/21 20:00 Active Sodium Chloride 0.9% [Normal Saline] 50 ml IV Q4H Butorphanol [Stadol] Med 09/15/21 15:59 Active 1 mg IVPUSH Q1H PRN Carboprost Tromethamine [Hemabate DS] Med 09/15/21 15:59 Active 250 mcg IM ASDIRECTED PRN Lactated Ringers [Ringers, Lactated] 1,000 ml Med 09/15/21 16:00 Active IV ASDIRECTED Lidocaine 1% [Xylocaine 1%] Med 09/15/21 15:59 Active 50 ml INJECT ONETIME PRN Methylergonovine [Methergine] Med 09/15/21 15:59 Active 0.2 mg IM ASDIRECTED PRN Nalbuphine [Nubain] Med 09/15/21 15:59 Active 10 mg IVPUSH Q1H PRN Oxytocin/0.9 % Sodium Chloride [Oxytocin 30 Unit in NS Med 09/15/21 16:00 Active 0.9% 500 ML Premix] 30 unit in 500 ml IV TITRATE Sodium Chloride 0.9% [Normal Saline] Med 09/15/21 15:59 Active 10 ml IV ASDIRECTED PRN Sodium Chloride 0.9% [Saline Flush] Med 09/15/21 15:59 Active 10 ml FLUSH ASDIRECTED PRN Sodium Chloride 0.9% [Saline Flush] Med 09/15/21 15:59 Active 2.5 ml FLUSH ASDIRECTED PRN Tranexamic Acid [Cyklokapron] 1,000 mg Med 09/15/21 15:59 Active Sodium Chloride 0.9% [Normal Saline] 100 ml IV ONETIME Water For Irrigation,Sterile [Sterile Water for Med 09/15/21 15:59 Active Irrigation] 1,000 ml IRR ASDIRECTED PRN miSOPROStoL [Cytotec] Med 09/15/21 15:59 Active 200 mcg PO ONETIME PRN Scalp Electrode [WOMSER] Per Unit Routine Oth 09/15/21 15:59 Ordered Peripheral IV Insertion Adult [OM.PC] Routine Oth 09/15/21 15:59 Ordered Resuscitation Status Routine Resus Stat 09/15/21 15:59 Ordered Medication Orders Butorphanol Tartrate (Butorphanol 1 Mg/Ml Sdv) 1 mg IVPUSH Q1H PRN PRN Reason: Pain (severe 7-10) Carboprost Tromethamine (Carboprost Tromethamine 250 Mcg/1 Ml Amp) 250 mcg IM ASDIRECTED PRN PRN Reason: Post Hemorrhage Oxytocin/Sodium Chloride (Oxytocin 30 Unit In Ns 0.9% 500 Ml Premix) 30 unit in 500 mls @ 999 mls/hr IV TITRATE [facility] Tranexamic Acid 1,000 mg/ (Sodium Chloride) 110 mls @ 660 mls/hr IV ONETIME PRN PRN Reason: Bleeding Ampicillin Sodium 1 gm/ Sodium (Chloride) 50 mls @ 100 mls/hr IV Q4H [facility] Lactated Ringer's (Ringers, Lactated) 1,000 mls @ 150 mls/hr IV ASDIRECTED [facility] Last Admin: 09/15/21 16:24 Dose: 500 mls/hr Documented by: MINO Lidocaine HCl (Lidocaine 1% 50 Ml Mdv) 50 ml INJECT ONETIME PRN PRN Reason: Laceration repair Methylergonovine Maleate (Methylergonovine 0.2 Mg/1 Ml Amp) 0.2 mg IM ASDIR ECTED PRN PRN Reason: Post Hemorrhage Misoprostol (Misoprostol 200 Mcg Tab) 200 mcg PO ONETIME PRN PRN Reason: Post Hemorrhage Nalbuphine HCl (Nalbuphine 10 Mg/1 Ml Vial) 10 mg IVPUSH Q1H PRN PRN Reason: Pain (severe 7-10) Sodium Chloride (Sodium Chloride 0.9% 10 Ml Syringe) 10 ml FLUSH ASDIRECTED PRN PRN Reason: Keep Vein Open Sodium Chloride (Sodium Chloride 0.9% 2.5 Ml Syringe) 2.5 ml FLUSH ASDIRECTED PRN PRN Reason: Keep Vein Open Sodium Chloride (Sodium Chloride 0.9% 10 Ml Sdv) 10 ml IV ASDIRECTED PRN PRN Reason: IV Use Sterile Water (Water For Irrigation,Sterile 1,000 Ml Container) 1,000 ml IRR ASDIRECTED PRN PRN Reason: delivery Assessment/Plan Comment:: 20yo at 39w6d admitted in active labor. GBS positive and late entry to care, otherwise unremarkable. Boyce score of 8 (per the nurse exam) Cat 1 tracing. P: Expectant management GBS prophilaxis. Epidural PRN
[2021-09-15] MEDS ORDERED: Ampicillin 1 GM in Sodium Chloride 0.9% 50 ML IV SCH (20:00)
[2021-09-15] MEDS ORDERED: Ibuprofen 800 MG Tab PO PRN (21:02)
[2021-09-15] MEDS ORDERED: Witch Hazel Medicated Pads 40/Jar TOP PRN (21:02)
[2021-09-15] MEDS ORDERED: Lanolin 100% Cream 7 GM Tube TOP PRN (21:02)
[2021-09-15] MEDS ORDERED: Acetaminophen 500 MG Tab PO PRN (21:02)
[2021-09-15] MEDS ORDERED: Bisacodyl 10 MG Supp RECTAL PRN (21:02)
[2021-09-15] MEDS ORDERED: Benzocaine/Menthol 20%-0.5% Spray 78 GM Cannister TOP PRN (21:02)
[2021-09-15] MEDS ORDERED: Ibuprofen 400 MG Tab PO PRN (21:02)
[2021-09-15] MEDS ORDERED: Docusate Sodium 100 MG Cap PO PRN (21:02)
--- NOTE | 2021-09-15 21:08 | PCM.DEL ---
L & D Note - General Info Date of Service: 09/15/21 Mother's Due Date: 09/16/21 - Delivery Note Labor: Spontaneous Delivery Outcome: Livebirth Infant Delivery Method: Spontaneous Vaginal Delivery-Single Presentation: Vertex Nuchal Cord: None Anesthesia Type: None Laceration: 1st Degree, Vaginal Placenta: Intact, Spontaneous Estimated Blood Loss: 300 Resuscitation Needed: No [place]: Stimulated Score 1 min: 8 Score 5 min: 9 Delivery Comments (Free Text/Narrative):: 20yo G2 now P2002 at 39w6d s/p uncomplicated of a live male, 7lb 10oz and Apgars 8/9. Delivered [place]AT, no nuchal cord, No meconium. Vertex and body delivered without difficulty. Cord clamped and cut. Nose and mouth bulb suctioned; Baby placed on Mom's abdomen. Placenta delivered spontaneously, intact. Fundus firm, minimal bleeding. Placenta appears intact. Perineum and vagina inspected small 1st degree vaginal laceration hemostatic. EBL 300cc. Patient tolerated procedure well, recovering in LDR. by her side. - General Info Date of Service: 09/15/21 Admission Dx/Problem (Free Text): Patient Status Order with Admit Dx/Problem 09/15/21 15:59 Patient Status [ADT] Routine Admission Diagnosis/Problem Admission Diagnosis/Problem Functional Status: Reports: Pain Controlled - Review of Systems General: Reports: No Symptoms HEENT: Reports: No Symptoms Pulmonary: Reports: No Symptoms Cardiovascular: Reports: No Symptoms Gastrointestinal: Reports: No Symptoms Genitourinary: Reports: No Symptoms Musculoskeletal: Reports: No Symptoms Skin: Reports: No Symptoms Neurological: Reports: No Symptoms Psychiatric: Reports: No Symptoms - Patient Data Weight - Most Recent: 81.647 kg I&O - Last 24 Hours: Intake & Output 09/15/21 09/15/21 09/15/21 06:59 14:59 22:59 Intake Total 250 Balance 250 Lab Results Last 24 Hours: Laboratory Results - last 24 hr 09/15/21 09/15/21 09/15/21 Range/Units 16:14 16:22 16:29 WBC 10.53 (4.0-11.0) K/uL RBC 4.38 (4.30-5.90) M/uL Hgb 11.5 L (12.0-16.0) g/dL Hct 34.8 L (36.0-46.0) % MCV 79.5 L (80.0-98.0) fL MCH 26.3 L (27.0-32.0) pg MCHC 33.0 (31.0-37.0) g/dL RDW Std Deviation 39.4 (28.0-62.0) fl RDW Coeff of Elizabeth 14 (11.0-15.0) % Plt Count 255 (150-400) K/uL MPV 10.70 (7.40-12.00) fL Nucleated RBC % 0.0 /100WBC Nucleated RBCs # 0 K/uL SARS-CoV-2 RNA (MEG) NEGATIVE (NEGATIVE) Blood Type A POSITIVE Antibody Screen NEGATIVE Med Orders - Current: Current Medications Butorphanol Tartrate (Butorphanol 1 Mg/Ml Sdv) 1 mg IVPUSH Q1H PRN PRN Reason: Pain (severe 7-10) Carboprost Tromethamine (Carboprost Tromethamine 250 Mcg/1 Ml Amp) 250 mcg IM ASDIRECTED PRN PRN Reason: Post Hemorrhage Oxytocin/Sodium Chloride (Oxytocin 30 Unit In Ns 0.9% 500 Ml Premix) 30 unit in 500 mls @ 999 mls/hr IV TITRATE [facility] Tranexamic Acid 1,000 mg/ (Sodium Chloride) 110 mls @ 660 mls/hr IV ONETIME PRN PRN Reason: Bleeding Ampicillin Sodium 1 gm/ Sodium (Chloride) 50 mls @ 100 mls/hr IV Q4H [facility] Last Admin: 09/15/21 19:25 Dose: 100 mls/hr Documented by: Lactated Ringer's (Ringers, Lactated) 1,000 mls @ 150 mls/hr IV ASDIRECTED [facility] Last Infusion: 09/15/21 17:04 Dose: 150 mls/hr Documented by: Lidocaine HCl (Lidocaine 1% 50 Ml Mdv) 50 ml INJECT ONETIME PRN PRN Reason: Laceration repair Methylergonovine Maleate (Methylergonovine 0.2 Mg/1 Ml Amp) 0.2 mg IM ASDIRECTED PRN PRN Reason: Post Hemorrhage Misoprostol (Misoprostol 200 Mcg Tab) 200 mcg PO ONETIME PRN PRN Reason: Post Hemorrhage Nalbuphine HCl (Nalbuphine 10 Mg/1 Ml Vial) 10 mg IVPUSH Q1H PRN PRN Reason: Pain (severe 7-10) Sodium Chloride (Sodium Chloride 0.9% 10 Ml Syringe) 10 ml FLUSH ASDIRECTED PRN PRN Reason: Keep Vein Open Sodium Chloride (Sodium Chloride 0.9% 2.5 Ml Syringe) 2.5 ml FLUSH ASDIRECTED PRN PRN Reason: Keep Vein Open Sodium Chloride (Sodium Chloride 0.9% 10 Ml Sdv) 10 ml IV ASDIRECTED PRN PRN Reason: IV Use Sterile Water (Water For Irrigation,Sterile 1,000 Ml Container) 1,000 ml IRR ASDIRECTED PRN PRN Reason: delivery Discontinued Medications Ampicillin Sodium 2 gm/ Sodium (Chloride) 100 mls @ 200 mls/hr IV ONETIME ONE Stop: 09/15/21 16:28 Last Admin: 09/15/21 16:35 Dose: 200 mls/hr Documented by: - Exam General: Alert, Oriented Lungs: Normal Respiratory Effort Cardiovascular: Regular Rate GI/Abdominal Exam: Soft, Non-Tender Extremities: Normal Inspection Psy/Mental Status: Alert, Normal Affect, Normal Mood - Problem List & Annotations (1) Active labor at term SNOMED Code(s): 40095700 Code(s): DIR4782 - Status: Acute Priority: High Current Visit: Yes (2) GBS carrier SNOMED Code(s): 7850920186396 Code(s): Z22.330 - CARRIER OF GROUP B STREPTOCOCCUS Status: Acute Priority: High Current Visit: Yes (3) (normal spontaneous vaginal delivery) SNOMED Code(s): 31902197, 530455964 Code(s): O80 - ENCOUNTER FOR FULL-TERM UNCOMPLICATED DELIVERY Status: Acute Priority: High Current Visit: Yes - Problem List Review Problem List Initiated/Reviewed/Updated: Yes - My Orders Last 24 Hours: My Active Orders 09/15/21 15:59 May Shower [RC] ASDIRECTED Notify Provider [RC] PRN Up ad Ellyn [RC] ASDIRECTED Vital Signs [RC] PER UNIT ROUTINE Butorphanol [Stadol] 1 mg IVPUSH Q1H PRN Carboprost Tromethamine [Hemabate DS] 250 mcg IM ASDIRECTED PRN Lidocaine 1% [Xylocaine 1%] 50 ml INJECT ONETIME PRN Methylergonovine [Methergine] 0.2 mg IM ASDIRECTED PRN Nalbuphine [Nubain] 10 mg IVPUSH Q1H PRN Sodium Chloride 0.9% [Normal Saline] 10 ml IV ASDIRECTED PRN Sodium Chloride 0.9% [Saline Flush] 10 ml FLUSH ASDIRECTED PRN Sodium Chloride 0.9% [Saline Flush] 2.5 ml FLUSH ASDIRECTED PRN Tranexamic Acid [Cyklokapron] 1,000 mg Sodium Chloride 0.9% [Normal Saline] 100 ml IV ONETIME Water For Irrigation,Sterile [Sterile Water for Irrigation] 1,000 ml IRR ASDIRECTED PRN miSOPROStoL [Cytotec] 200 mcg PO ONETIME PRN Scalp Electrode [WOMSER] Per Unit Routine Peripheral IV Insertion Adult [OM.PC] Routine Resuscitation Status Routine 09/15/21 Dinner Regular Diet [DIET] Lactated Ringers [Ringers, Lactated] 1,000 ml IV ASDIRECTED Oxytocin/0.9 % Sodium Chloride [Oxytocin 30 Unit in NS 0.9% 500 ML Premix] 30 unit in 500 ml IV TITRATE 09/15/21 16:22 RPR (SYPHILIS SERO) W/ RFLX [REF] Routine 09/15/21 20:00 Ampicillin 1 gm Sodium Chloride 0.9% [Normal Saline] 50 ml IV Q4H 09/15/21 21:02 Patient Status [ADT] Routine May Shower [RC] ASDIRECTED Up ad Ellyn [RC] ASDIRECTED Vital Signs [RC] PER UNIT ROUTINE Acetaminophen [Tylenol Extra Strength] 1,000 mg PO Q4H PRN Acetaminophen [Tylenol Extra Strength] 500 mg PO Q4H PRN Benzocaine/Menthol [Dermoplast Pain Relief 20%-0.5% [place]] 78 gm TOP ASDIRECTED PRN Docusate Sodium [Colace] 100 mg PO Q12H PRN Ibuprofen [Motrin] 400 mg PO Q4H PRN Ibuprofen [Motrin] 800 mg PO Q6H PRN Lanolin [Lansinoh HPA] See Dose Instructions TOP ASDIRECTED PRN bisacodyL [Dulcolax] 10 mg RECTAL ONETIME PRN witch [place] [Tucks] 1 pad TOP ASDIRECTED PRN Assess Lochia [WOMSER] Per Unit Routine Assess Uterine Involution [WOMSER] Per Unit Routine Peripheral IV Discontinue [OM.PC] Routine 09/16/21 05:11 HEMOGLOBIN/HEMATOCRIT,HH [HEME] Timed - Plan Plan:: 20yo G2 now P2002 at 39w6d s/p uncomplicated . GBS positive and late entry to care, otherwise unremarkable. Received 2 doses of antibiotics P: Routine care
[2021-09-16] MEDS: Acetaminophen 500 MG Tab PO PRN ×2 (08:33→17:31)
--- NOTE | 2021-09-16 09:41 | PCM.PNPP ---
- General Info Date of Service: 09/16/21 Functional Status: Reports: Pain Controlled - Review of Systems General: Reports: No Symptoms HEENT: Reports: No Symptoms Pulmonary: Reports: No Symptoms Cardiovascular: Reports: No Symptoms Gastrointestinal: Reports: No Symptoms Genitourinary: Reports: No Symptoms Musculoskeletal: Reports: No Symptoms Skin: Reports: No Symptoms Neurological: Reports: No Symptoms Psychiatric: Reports: No Symptoms - General Info Date of Service: 09/16/21 - Patient Data Vital Signs - Most Recent: Last Vital Signs Temp 36.2 C 09/16/21 08:00 Pulse 72 09/16/21 08:00 Resp 16 09/16/21 08:00 BP 126/87 09/16/21 08:00 Pulse Ox 98 09/16/21 08:00 Weight - Most Recent: 81.647 kg I&O - Last 24 Hours: Intake & Output 09/15/21 09/16/21 09/16/21 22:59 06:59 14:59 Intake Total 1750 Output Total 800 Balance 950 Lab Results - Last 24 Hours: Laboratory Results - last 24 hr 09/15/21 09/15/21 09/15/21 Range/Units 16:14 16:22 16:29 WBC 10.53 (4.0-11.0) K/uL RBC 4.38 (4.30-5.90) M/uL Hgb 11.5 L (12.0-16.0) g/dL Hct 34.8 L (36.0-46.0) % MCV 79.5 L (80.0-98.0) fL MCH 26.3 L (27.0-32.0) pg MCHC 33.0 (31.0-37.0) g/dL RDW Std Deviation 39.4 (28.0-62.0) fl RDW Coeff of [place] 14 (11.0-15.0) % Plt Count 255 (150-400) K/uL MPV 10.70 (7.40-12.00) fL Nucleated RBC % 0.0 /100WBC Nucleated RBCs # 0 K/uL SARS-CoV-2 RNA (MEG) NEGATIVE (NEGATIVE) Blood Type A POSITIVE Antibody Screen NEGATIVE 09/16/21 Range/Units 05:56 WBC (4.0-11.0) K/uL RBC (4.30-5.90) M/uL Hgb 10.7 L (12.0-16.0) g/dL Hct 31.8 L (36.0-46.0) % MCV (80.0-98.0) fL MCH (27.0-32.0) pg MCHC (31.0-37.0) g/dL RDW Std Deviation (28.0-62.0) fl RDW Coeff of [place] (11.0-15.0) % Plt Count (150-400) K/uL MPV (7.40-12.00) fL Nucleated RBC % /100WBC Nucleated RBCs # K/uL SARS-CoV-2 RNA (MEG) (NEGATIVE) Blood Type Antibody Screen Med Orders - Current: Current Medications Acetaminophen (Acetaminophen 500 Mg Tab) 500 mg PO Q4H PRN PRN Reason: Pain (mild 1-3) Acetaminophen (Acetaminophen 500 Mg Tab) 1,000 mg PO Q4H PRN PRN Reason: Pain (mild 1-3) Last Admin: 09/16/21 08:33 Dose: 1,000 mg Documented by: Benzocaine/Menthol (Benzocaine/Menthol 20%-0.5% [place] 78 Gm Cannister) 78 gm TOP ASDIRECTED PRN PRN Reason: Perineal Comfort Measure Last Admin: 09/15/21 23:26 Dose: 1 spray Documented by: Bisacodyl (Bisacodyl 10 Mg Supp) 10 mg RECTAL ONETIME PRN PRN Reason: Constipation Butorphanol Tartrate (Butorphanol 1 Mg/Ml Sdv) 1 mg IVPUSH Q1H PRN PRN Reason: Pain (severe 7-10) Carboprost Tromethamine (Carboprost Tromethamine 250 Mcg/1 Ml Amp) 250 mcg IM ASDIRECTED PRN PRN Reason: Post Hemorrhage Docusate Sodium (Docusate Sodium 100 Mg Cap) 100 mg PO Q12H PRN PRN Reason: Constipation Emollient Ointment (Lanolin 100% Cream 7 Gm Tube) 0 gm TOP ASDIRECTED PRN PRN Reason: Sore Nipples Oxytocin/Sodium Chloride (Oxytocin 30 Unit In Ns 0.9% 500 Ml Premix) 30 unit in 500 mls @ 999 mls/hr IV TITRATE [facility] Last Admin: 09/15/21 20:48 Dose: 999 mls/hr Documented by: Tranexamic Acid 1,000 mg/ (Sodium Chloride) 110 mls @ 660 mls/hr IV ONETIME PRN PRN Reason: Bleeding Lactated Ringer's (Ringers, Lactated) 1,000 mls @ 150 mls/hr IV ASDIRECTED [facility] Last Infusion: 09/15/21 17:04 Dose: 150 mls/hr Documented by: Ibuprofen (Ibuprofen 400 Mg Tab) 400 mg PO Q4H PRN PRN Reason: Pain (mild 1-3) Ibuprofen (Ibuprofen 800 Mg Tab) 800 mg PO Q6H PRN PRN Reason: Cramping Lidocaine HCl (Lidocaine 1% 50 Ml Mdv) 50 ml INJECT ONETIME PRN PRN Reason: Laceration repair Methylergonovine Maleate (Methylergonovine 0.2 Mg/1 Ml Amp) 0.2 mg IM ASDIRECTED PRN PRN Reason: Post Hemorrhage Misoprostol (Misoprostol 200 Mcg Tab) 200 mcg PO ONETIME PRN PRN Reason: Post Hemorrhage Nalbuphine HCl (Nalbuphine 10 Mg/1 Ml Vial) 10 mg IVPUSH Q1H PRN PRN Reason: Pain (severe 7-10) Sodium Chloride (Sodium Chloride 0.9% 10 Ml Syringe) 10 ml FLUSH ASDIRECTED PRN PRN Reason: Keep Vein Open Sodium Chloride (Sodium Chloride 0.9% 2.5 Ml Syringe) 2.5 ml FLUSH ASDIRECTED PRN PRN Reason: Keep Vein Open Sodium Chloride (Sodium Chloride 0.9% 10 Ml Sdv) 10 ml IV ASDIRECTED PRN PRN Reason: IV Use Sterile Water (Water For Irrigation,Sterile 1,000 Ml Container) 1,000 ml IRR ASDIRECTED PRN PRN Reason: delivery Witch Bindu (Witch Bindu Medicated Pads 40/Jar) 1 pad TOP ASDIRECTED PRN PRN Reason: comfort care Last Admin: 09/15/21 23:27 Dose: 1 pad Documented by: Discontinued Medications Ampicillin Sodium 2 gm/ Sodium (Chloride) 100 mls @ 200 mls/hr IV ONETIME ONE Stop: 09/15/21 16:28 Last Admin: 09/15/21 16:35 Dose: 200 mls/hr Documented by: Ampicillin Sodium 1 gm/ Sodium (Chloride) 50 mls @ 100 mls/hr IV Q4H [facility] Last Admin: 09/15/21 19:25 Dose: 100 mls/hr Documented by: - Interaction Infant Disposition, : in Room with Family Infant Interaction: Holding Infant Infant Feeding: Attempted ; Nursed Fair/Poor Support Person: - Recovery Exam Fundal Tone: Firm Fundal Level: 1 Fingerbreadths Below Umbilicus Fundal Placement: Midline Lochia Amount: Small Lochia Color: Rubra/Red Perineum Description: Other (see below) Other Perinuem Description: 1st degree laceration without repair. Episiotomy/Laceration: Approximated Bladder Status: Voiding - Exam General: Alert, Oriented HEENT: Pupils Equal Neck: Supple Lungs: Clear to Auscultation, Normal Respiratory Effort Cardiovascular: Regular Rate, Regular Rhythm GI/Abdominal Exam: Normal Bowel Sounds, Soft, Non-Tender, No Organomegaly, No Distention, No Abnormal Bruit, No Mass, Pelvis Stable Extremities: Normal Inspection, Normal Range of Motion, Non-Tender, No Pedal Edema, Normal Capillary Refill Skin: Warm, Dry, Intact Wound/Incisions: Healing Well Neurological: No New Focal Deficit Psy/Mental Status: Alert, Normal Affect, Normal Mood - Problem List Review Problem List Initiated/Reviewed/Updated: Yes - Assessment Assessment:: Status post normal spontaneous vaginal delivery no complications the patient would be discharge in a.m. - Plan Plan:: 20yo G2 now P2002 at 39w6d s/p uncomplicated . GBS positive and late entry to care, otherwise unremarkable. Received 2 doses of antibiotics P: Routine care
[2021-09-17] MEDS: Acetaminophen 500 MG Tab PO PRN (02:57)
--- NOTE | 2021-09-17 11:41 | PCM.DCSUM1 ---
Discharge Summary - Hospital Course Diagnosis: Stroke: No - Discharge Data Discharge Date: 09/17/21 Discharge Disposition: Home, Self-Care 01 Condition: Good - Referral to Home Health Primary Care Physician: Kerry Pradhan MD - Patient Instructions Diet: Usual Diet as Tolerated Activity: As Tolerated - Discharge Plan Home Medications: Home Meds Pnv No.95/Ferrous Fum/Folic AC [ Vitamins Tablet] 1 tab PO DAILY 09/15/21 [History] Patient Handouts: Baby Blues, Care After Vaginal Delivery Referrals: Ethan Pacheco MD [Physician] - 10/28/21 4:00 pm (6-week check.) - Discharge Summary/Plan Comment DC Time >30 min.: Yes Total # of Minutes for Discharge Time: 30 - General Info Date of Service: 09/17/21 Functional Status: Reports: Pain Controlled - Review of Systems General: Reports: No Symptoms HEENT: Reports: No Symptoms Pulmonary: Reports: No Symptoms Cardiovascular: Reports: No Symptoms Gastrointestinal: Reports: No Symptoms Genitourinary: Reports: No Symptoms Musculoskeletal: Reports: No Symptoms Skin: Reports: No Symptoms Neurological: Reports: No Symptoms Psychiatric: Reports: No Symptoms - Patient Data Vitals - Most Recent: Last Vital Signs Temp 36.1 C 09/17/21 07:31 Pulse 75 09/17/21 07:31 Resp 16 09/17/21 07:31 BP 115/74 09/17/21 07:31 Pulse Ox 98 09/17/21 07:31 Weight - Most Recent: 81.647 kg Med Orders - Current: Current Medications Acetaminophen (Acetaminophen 500 Mg Tab) 500 mg PO Q4H PRN PRN Reason: Pain (mild 1-3) Acetaminophen (Acetaminophen 500 Mg Tab) 1,000 mg PO Q4H PRN PRN Reason: Pain (mild 1-3) Last Admin: 09/17/21 02:57 Dose: 1,000 mg Documented by: Benzocaine/Menthol (Benzocaine/Menthol 20%-0.5% [place] 78 Gm Cannister) 78 gm TOP ASDIRECTED PRN PRN Reason: Perineal Comfort Measure Last Admin: 09/15/21 23:26 Dose: 1 spray Documented by: Bisacodyl (Bisacodyl 10 Mg Supp) 10 mg RECTAL ONETIME PRN PRN Reason: Constipation Butorphanol Tartrate (Butorphanol 1 Mg/Ml Sdv) 1 mg IVPUSH Q1H PRN PRN Reason: Pain (severe 7-10) Carboprost Tromethamine (Carboprost Tromethamine 250 Mcg/1 Ml Amp) 250 mcg IM ASDIRECTED PRN PRN Reason: Post Hemorrhage Docusate Sodium (Docusate Sodium 100 Mg Cap) 100 mg PO Q12H PRN PRN Reason: Constipation Emollient Ointment (Lanolin 100% Cream 7 Gm Tube) 0 gm TOP ASDIRECTED PRN PRN Reason: Sore Nipples Oxytocin/Sodium Chloride (Oxytocin 30 Unit In Ns 0.9% 500 Ml Premix) 30 unit in 500 mls @ 999 mls/hr IV TITRATE [facility] Last Admin: 09/15/21 20:48 Dose: 999 mls/hr Documented by: Tranexamic Acid 1,000 mg/ (Sodium Chloride) 110 mls @ 660 mls/hr IV ONETIME PRN PRN Reason: Bleeding Lactated Ringer's (Ringers, Lactated) 1,000 mls @ 150 mls/hr IV ASDIRECTED [facility] Last Infusion: 09/15/21 17:04 Dose: 150 mls/hr Documented by: Ibuprofen (Ibuprofen 400 Mg Tab) 400 mg PO Q4H PRN PRN Reason: Pain (mild 1-3) Ibuprofen (Ibuprofen 800 Mg Tab) 800 mg PO Q6H PRN PRN Reason: Cramping Lidocaine HCl (Lidocaine 1% 50 Ml Mdv) 50 ml INJECT ONETIME PRN PRN Reason: Laceration repair Methylergonovine Maleate (Methylergonovine 0.2 Mg/1 Ml Amp) 0.2 mg IM ASDIRECTED PRN PRN Reason: Post Hemorrhage Misoprostol (Misoprostol 200 Mcg Tab) 200 mcg PO ONETIME PRN PRN Reason: Post Hemorrhage Nalbuphine HCl (Nalbuphine 10 Mg/1 Ml Vial) 10 mg IVPUSH Q1H PRN PRN Reason: Pain (severe 7-10) Sodium Chloride (Sodium Chloride 0.9% 10 Ml Syringe) 10 ml FLUSH ASDIRECTED PRN PRN Reason: Keep Vein Open Sodium Chloride (Sodium Chloride 0.9% 2.5 Ml Syringe) 2.5 ml FLUSH ASDIRECTED PRN PRN Reason: Keep Vein Open Sodium Chloride (Sodium Chloride 0.9% 10 Ml Sdv) 10 ml IV ASDIRECTED PRN PRN Reason: IV Use Sterile Water (Water For Irrigation,Sterile 1,000 Ml Container) 1,000 ml IRR ASDIRECTED PRN PRN Reason: delivery Witch Bindu (Witch Bindu Medicated Pads 40/Jar) 1 pad TOP ASDIRECTED PRN PRN Reason: comfort care Last Admin: 09/15/21 23:27 Dose: 1 pad Documented by: Discontinued Medications Ampicillin Sodium 2 gm/ Sodium (Chloride) 100 mls @ 200 mls/hr IV ONETIME ONE Stop: 09/15/21 16:28 Last Admin: 09/15/21 16:35 Dose: 200 mls/hr Documented by: Ampicillin Sodium 1 gm/ Sodium (Chloride) 50 mls @ 100 mls/hr IV Q4H [facility] Last Admin: 09/15/21 19:25 Dose: 100 mls/hr Documented by: - Exam General: Reports: Alert, Oriented HEENT: Reports: Pupils Equal, Pupils Reactive, EOMI, Mucous Membr. Moist/[place] Neck: Reports: Supple Lungs: Reports: Clear to Auscultation, Normal Respiratory Effort Cardiovascular: Reports: Regular Rate, Regular Rhythm GI/Abdominal Exam: Normal Bowel Sounds, Soft, Non-Tender, No Organomegaly, No Distention, No Abnormal Bruit, No Mass, Pelvis Stable (Female) Exam: Normal External Exam, Normal Speculum Exam, Normal Bimanual Exam Rectal (Female) Exam: Normal Exam, Normal Rectal Tone Back Exam: Reports: Normal Inspection, Full Range of Motion Extremities: Normal Inspection, Normal Range of Motion, Non-Tender, No Pedal Edema, Normal Capillary Refill Skin: Reports: Warm, Dry, Intact Wound/Incisions: Reports: Healing Well Neurological: Reports: No New Focal Deficit Psy/Mental Status: Reports: Alert, Normal Affect, Normal Mood
== END 2021-09-17 23:40 | disposition home or self-care (01) | DRG 807 ==
LOC: MW.OBCHECK 15:33 → MW.OB 16:14 → OBSVTOIN 20:47 → MW.OB 20:47
PROVIDERS: ADMIT Obstetrics & Gynecology Obstetrics; ATTEND Obstetrics & Gynecology Obstetrics
PROC: 10E0XZZ Delivery of Products of Conception, External Approach (ICD-10-PCS; principal; 2021-09-15)
PROC: 0HQ9XZZ Repair Perineum Skin, External Approach (ICD-10-PCS; 2021-09-15)
DX: O99.824 Streptococcus B carrier state complicating childbirth (principal); Z37.0 Single live birth; Z3A.39 39 weeks gestation of pregnancy; O70.0 First degree perineal laceration during delivery; Z20.822 Contact with and (suspected) exposure to COVID-19
CPT/HCPCS: 36415; 59025; 59409; 85014; 85018; 85027; 86592; 86850; 86900; 86901; A9270-GY; J0290; J2590; J7120; U0002

== ENCOUNTER 2024-09-28 04:08 | Inpatient (IN) | payer MEDICAID ==
[2024-09-28] MEDS ORDERED: Citric Acid/Sodium Citrate Solution 30 ML Cup PO ONE (04:38)
[2024-09-28] MEDS ORDERED: Sodium Chloride 0.9% 20 ML SDV IV PRN (04:38)
[2024-09-28] MEDS ORDERED: Sodium Chloride 0.9% 2.5 ML Syringe FLUSH PRN (04:38)
[2024-09-28] MEDS ORDERED: ceFAZolin 2 GM in Sodium Chloride 0.9% 50 ML IV ONE (04:38)
[2024-09-28] MEDS ORDERED: Sodium Chloride 0.9% 10 ML Syringe FLUSH PRN (04:38)
[2024-09-28] MEDS ORDERED: Oxytocin/0.9 % Sodium Chloride 30 UNIT/500 ML BAG IV SCH (04:45)
[2024-09-28] MEDS ORDERED: Lactated Ringers 1,000 ML IV SCH (04:45)
[2024-09-28] MEDS ORDERED: Ondansetron 4 MG/2 ML SDV ONE (04:46)
[2024-09-28] MEDS ORDERED: Ropivacaine 0.5% 5 MG/ML 30 ML SDV ONE (04:46)
[2024-09-28] MEDS ORDERED: ceFAZolin 1 GM Vial ONE ×2 (04:46→05:27)
[2024-09-28] MEDS ORDERED: Bupivacaine 0.25% 30 ML SDV ONE (04:46)
[2024-09-28] MEDS ORDERED: Oxytocin 10 Units/1 ML SDV ONE (04:46)
[2024-09-28] MEDS ORDERED: Ketorolac 30 MG/ML SDV ONE (04:46)
[2024-09-28] MEDS ORDERED: EPINEPHrine 1 MG/1 ML Amp ONE (04:46)
[2024-09-28] MEDS ORDERED: Morphine PF 10 MG/10 ML SDV ONE (04:47)
[2024-09-28] MEDS ORDERED: fentaNYL 100 MCG/2 ML SDV ONE (04:47)
[2024-09-28] MEDS ORDERED: Phenylephrine HCl In 0.9% NaCl 1 MG/10 ML Syringe ONE ×2 (04:52→05:52)
[2024-09-28 05:13] LABS: HEMATOCRIT 38.8 % (37.0-47.0); MEAN CORPUSCULAR HEMOGLOBIN 24.3 pg (28.0-32.0); MEAN CORPUSCULAR HGB CONC 30.9 g/dL (32.0-36.0); MEAN CORPUSCULAR VOLUME 78.7 fL (83.0-99.0); MEAN PLATELET VOLUME 10.7 fL (9.4-12.3); PLATELET COUNT,PLT 208 K/uL (150-400); RED BLOOD CELL COUNT 4.93 M/uL (4.10-5.30); WHITE BLOOD CELL COUNT,WBC 8.53 K/uL (3.9-11.3)
[2024-09-28] MEDS ORDERED: diphenhydrAMINE 50 MG/ML SDV IVPUSH PRN ×2 (05:21→07:02)
[2024-09-28] MEDS ORDERED: Oxytocin 10 Units/1 ML SDV IM PRN (05:21)
[2024-09-28] MEDS ORDERED: Bisacodyl 10 MG Supp RECTAL PRN (05:21)
[2024-09-28] MEDS ORDERED: Methylergonovine 0.2 MG/1 ML Amp IM PRN (05:21)
[2024-09-28] MEDS ORDERED: Lanolin 100% Cream 7 GM Tube TOP PRN (05:21)
[2024-09-28] MEDS ORDERED: Acetaminophen/oxyCODONE 325-5 MG Tab PO PRN ×2 (05:21→07:02)
[2024-09-28] MEDS ORDERED: Misoprostol 200 MCG Tab RECTAL PRN (05:21)
[2024-09-28] MEDS ORDERED: Ketorolac 30 MG/ML SDV IVPUSH SCH (05:30)
[2024-09-28] MEDS ORDERED: Azithromycin 500 MG Vial ONE (05:31)
[2024-09-28] MEDS ORDERED: ePHEDrine 50 MG/ML SDV ONE (06:02)
[2024-09-28] MEDS ORDERED: Tranexamic Acid 1,000 MG/10 ML Vial ONE (06:10)
[2024-09-28] MEDS ORDERED: Phenylephrine HCl In 0.9% NaCl 1 MG/10 ML Syringe IVPUSH PRN (07:02)
[2024-09-28] MEDS ORDERED: Naloxone 0.4 MG/ML SDV IVPUSH PRN (07:02)
[2024-09-28] MEDS ORDERED: Nalbuphine 10 MG/1 ML Vial IVPUSH PRN (07:02)
[2024-09-28] MEDS ORDERED: fentaNYL 100 MCG/2 ML SDV IVPUSH PRN (07:02)
[2024-09-28] MEDS ORDERED: Ondansetron 4 MG/2 ML SDV IVPUSH PRN (07:02)
[2024-09-28] MEDS ORDERED: Albuterol 0.083% 2.5 MG/3 ML Neb Soln NEB PRN (07:02)
[2024-09-28] MEDS ORDERED: HYDROmorphone 1 MG/ML Syringe IVPUSH PRN (07:02)
[2024-09-28] MEDS ORDERED: Morphine 2 MG/ML SYRINGE IVPUSH PRN (07:02)
[2024-09-28] MEDS ORDERED: fentaNYL 50 MCG/ML SDV IVPUSH PRN (07:02)
[2024-09-28] MEDS: Ondansetron 4 MG/2 ML SDV IVPUSH PRN ×2 (07:09→14:42)
[2024-09-28] MEDS: Metoclopramide 10 MG/2 ML SDV IVPUSH PRN (07:27)
[2024-09-28] MEDS: droPERidol 5 MG/2 ML SDV IVPUSH PRN (07:47)
[2024-09-28] MEDS: Lactated Ringers 1,000 ML IV SCH (08:23)
[2024-09-28] MEDS: Acetaminophen 1,000 MG in Premix Bag 1 BAG IV SCH (08:46)
[2024-09-28] MEDS: Docusate Sodium 100 MG Cap PO SCH (09:00)
[2024-09-28] MEDS: Ketorolac 30 MG/ML SDV IVPUSH SCH (10:30)
[2024-09-28] MEDS: Scopalamine 1mg/3day Transdermal Patch TRDERM PRN (15:29)
[2024-09-29 00:08] LABS: GROUP B STREP BY PCR NEGATIVE (NEGATIVE)
[2024-09-29 06:35] LABS: HEMATOCRIT 31.1 % (37.0-47.0); HEMOGLOBIN 9.7 g/dL (12.0-16.0)
[2024-09-29] MEDS ORDERED: Ibuprofen 800 MG Tab PO PRN (11:30)
[2024-09-29] MEDS: Acetaminophen/oxyCODONE 325-5 MG Tab PO PRN (12:47)
[2024-09-30 03:10] LABS: PH,UMBILICAL ARTERIAL 7.072 (7.18-7.38); PH,UMBILICAL VENOUS 7.078 (7.25-7.45)
== END 2024-09-30 21:00 | disposition home or self-care (01) | DRG 788 ==
LOC: MW.OBCHECK 04:08 → MW.OB 04:10 → MW.OBCHECK 04:28 → MW.OB 04:28
PROVIDERS: ADMIT Obstetrics & Gynecology Obstetrics; ATTEND Obstetrics & Gynecology Obstetrics
PROC: 10D00Z1 Extraction of Products of Conception, Low, Open Approach (ICD-10-PCS; principal; 2024-09-28 05:30)
DX: O60.14X0 Preterm labor third trimester with preterm delivery third trimester, not applicable or unspecified (principal); O34.211 Maternal care for low transverse scar from previous cesarean delivery; Z37.0 Single live birth; O99.02 Anemia complicating childbirth; Z3A.36 36 weeks gestation of pregnancy
CPT/HCPCS: 01961; 36415; 59025; 64488; 82803; 85014; 85018; 85027; 86592; 86850; 86900; 86901; 87653; A9270-GY; J0131; J0171; J0456; J0665; J0690; J1100; J1790; J1885; J2274; J2371; J2405; J2590; J2765; J2795; J3010; J3490; J7120

== ENCOUNTER 2025-08-21 06:09 | Inpatient (IN) | payer MEDICAID ==
[2025-08-21] MEDS ORDERED: Morphine PF 10 MG/10 ML SDV ONE (07:43)
[2025-08-21] MEDS ORDERED: fentaNYL 100 MCG/2 ML SDV ONE (07:43)
[2025-08-21] MEDS ORDERED: ePHEDrine 50 MG/ML SDV ONE (07:44)
[2025-08-21] MEDS ORDERED: Dexamethasone 4 MG/ML 5 ML MDV ONE (07:44)
[2025-08-21] MEDS ORDERED: dexmedeTOMIDine HCl 200 MCG/2 ML SDV ONE (07:44)
[2025-08-21] MEDS ORDERED: Phenylephrine 1% 10 MG/ML SDV ONE (07:44)
[2025-08-21] MEDS ORDERED: Ropivacaine 0.5% 5 MG/ML 30 ML SDV ONE (07:44)
[2025-08-21] MEDS ORDERED: Ondansetron 4 MG/2 ML SDV ONE (07:44)
[2025-08-21] MEDS ORDERED: Oxytocin 10 Units/1 ML SDV ONE (07:44)
[2025-08-21 07:57] LABS: MEAN PLATELET VOLUME 9.8 fL (9.4-12.3); NRBC ABSOLUTE 0.00 K/uL (0.00-0.02); NRBC PERCENT 0.0 /100WBC (0.0-0.2); PLATELET COUNT,PLT 256 K/uL (150-400); RED BLOOD CELL COUNT 4.33 M/uL (4.10-5.30); WHITE BLOOD CELL COUNT,WBC 11.57 K/uL (3.9-11.3)
[2025-08-21] MEDS ORDERED: droPERidol 2.5 MG/ML SDV ONE (08:02)
[2025-08-21] MEDS ORDERED: Nalbuphine 10 MG/1 ML Vial IVPUSH PRN (08:34)
[2025-08-21] MEDS ORDERED: Ondansetron 4 MG/2 ML SDV IVPUSH PRN ×2 (08:34→09:33)
[2025-08-21] MEDS ORDERED: Albuterol 0.083% 2.5 MG/3 ML Neb Soln NEB PRN (08:34)
[2025-08-21] MEDS ORDERED: diphenhydrAMINE 50 MG/ML SDV IVPUSH PRN (08:34)
[2025-08-21] MEDS ORDERED: Acetaminophen/oxyCODONE 325-5 MG Tab PO PRN (08:34)
[2025-08-21] MEDS ORDERED: fentaNYL 50 MCG/ML SDV IVPUSH PRN (08:34)
[2025-08-21] MEDS ORDERED: fentaNYL 100 MCG/2 ML SDV IVPUSH PRN (08:34)
[2025-08-21] MEDS ORDERED: Naloxone 0.4 MG/ML SDV IVPUSH PRN (08:34)
[2025-08-21] MEDS ORDERED: Lanolin 100% Cream 7 GM Tube TOP PRN (09:33)
[2025-08-21] MEDS ORDERED: Sodium Chloride 0.9% 2.5 ML Syringe FLUSH PRN (09:33)
[2025-08-21] MEDS ORDERED: Carboprost Tromethamine 250 MCG/1 mL Vial IM PRN (09:33)
[2025-08-21] MEDS ORDERED: Naloxone 0.4 MG/ML SDV IVPUSH ONE (09:33)
[2025-08-21] MEDS ORDERED: Sodium Chloride 0.9% 10 ML Syringe FLUSH PRN (09:33)
[2025-08-21] MEDS ORDERED: Oxytocin/0.9 % Sodium Chloride 30 UNIT/500 ML BAG IV SCH (09:45)
[2025-08-21] MEDS ORDERED: Ketorolac 30 MG/ML SDV IVPUSH SCH (09:45)
[2025-08-21 09:52] LABS: PH,UMBILICAL ARTERIAL 7.25 (7.18-7.38); PH,UMBILICAL VENOUS 7.34 (7.25-7.45)
[2025-08-21] MEDS: ePHEDrine 50 MG/ML SDV IM ONE (11:30)
[2025-08-21] MEDS: Ondansetron 4 MG/2 ML SDV IVPUSH PRN (12:50)
[2025-08-21] MEDS: Ketorolac 30 MG/ML SDV IVPUSH SCH (12:55)
[2025-08-21] MEDS ORDERED: Misoprostol 25 MCG (1/4 of 100 MCG) Tab VAG ONE (13:54)
[2025-08-22 06:26] LABS: BASOPHILS ABSOLUTE AUTO 0.04 K/uL (0.00-0.20); BASOPHILS PERCENT AUTO 0.3 % (0.0-1.0); EOSINOPHILS ABSOLUTE AUTO 0.02 K/uL (0.00-0.45); EOSINOPHILS PERCENT AUTO 0.1 % (0.0-6.0); IMMATURE GRAN ABSOLUTE AUTO 0.06 K/uL (0.00-0.05); IMMATURE GRAN PERCENT AUTO 0.4 % (0.0-0.4); LYMPHOCYTES ABSOLUTE AUTO 2.18 K/uL (1.00-4.80); LYMPHOCYTES PERCENT AUTO 14.9 % (24.0-44.0); MEAN PLATELET VOLUME 10.3 fL (9.4-12.3); MONOCYTES ABSOLUTE AUTO 1.34 K/uL (0.00-0.80); MONOCYTES PERCENT AUTO 9.1 % (0.0-8.0); NEUTROPHILS ABSOLUTE AUTO 11.01 K/uL (1.80-7.70); NEUTROPHILS PERCENT AUTO 75.2 % (41.0-71.0); NRBC ABSOLUTE 0.00 K/uL (0.00-0.02); NRBC PERCENT 0.0 /100WBC (0.0-0.2); PLATELET COUNT,PLT 249 K/uL (150-400); RED BLOOD CELL COUNT 3.53 M/uL (4.10-5.30); WHITE BLOOD CELL COUNT,WBC 14.65 K/uL (3.9-11.3)
[2025-08-22] MEDS: Sodium Ferric Gluconate Cmplex 125 MG in Sodium Chloride 0.9% 100 ML IV SCH (09:20)
== END 2025-08-23 15:00 | disposition home or self-care (01) | DRG 788 ==
LOC: MW.OBCHECK 06:09 → MW.OB 06:10 → MW.OBCHECK 08:38 → OBSVTOIN 08:41 → MW.OB 08:41
PROVIDERS: ADMIT Obstetrics & Gynecology; ATTEND Obstetrics & Gynecology Obstetrics
PROC: 10D00Z1 Extraction of Products of Conception, Low, Open Approach (ICD-10-PCS; principal; 2025-08-21 08:30)
DX: O34.211 Maternal care for low transverse scar from previous cesarean delivery (principal); O99.02 Anemia complicating childbirth; O99.214 Obesity complicating childbirth; E66.812 Obesity, class 2; Z3A.38 38 weeks gestation of pregnancy; Z37.0 Single live birth; Z79.899 Other long term (current) drug therapy
CPT/HCPCS: 01961; 36415; 59025; 59514; 64999; 82803; 85025; 85027; 86592; 86762; 86803; 86850; 86900; 86901; 87340; 87389; 99140; A9270-GY; J0456; J0690; J1100; J1596; J1790; J1885; J2274; J2371; J2405; J2590; J2795; J2916; J3010; J3490